=== PATIENT | female | born 1940 | race Caucasian/White ===

== ENCOUNTER 2016-09-27 13:17 | Emergency (ER) | payer MEDICARE, OTHER | END 2016-09-27 17:56 | disposition home or self-care (01) | LOC: ER 13:17 | DX: E11.649 Type 2 diabetes mellitus with hypoglycemia without coma (principal); Z79.84 Long term (current) use of oral hypoglycemic drugs; T68.XXXA Hypothermia, initial encounter; J44.9 Chronic obstructive pulmonary disease, unspecified; Z95.2 Presence of prosthetic heart valve; Z79.82 Long term (current) use of aspirin; F17.200 Nicotine dependence, unspecified, uncomplicated | CPT/HCPCS: 36415; 80053; 82947; 85025 ==